=== PATIENT | female | born 1955 | race Caucasian/White ===

== ENCOUNTER → 2016-04-23 | Outpatient (CLI) | payer MEDICARE, OTHER | LOC: KOH-I 14:17 | DX: M54.16 Radiculopathy, lumbar region (principal); M51.37 Other intervertebral disc degeneration, lumbosacral region; Z88.6 Allergy status to analgesic agent; Z88.8 Allergy status to other drugs, medicaments and biological substances | CPT/HCPCS: 72148 ==

== ENCOUNTER → 2020-05-30 | Outpatient (CLI) | payer MEDICARE, OTHER ==
[~2020-05-30] MED LIST: BACTRIM 400-801 EACH PO
== END ==
LOC: EXRD 15:56
DX: M79.605 Pain in left leg (principal); M71.22 Synovial cyst of popliteal space [Baker], left knee
CPT/HCPCS: 93971